=== PATIENT | female | born 1935 | race Caucasian/White ===

== ENCOUNTER 2016-12-10 13:41 | Emergency (ER) | payer OTHER, BC ==
[~2016-12-10] VITALS: Ht 157.5 cm; Wt 90.3 kg
[~2016-12-10 13:41] MED LIST: ADVAIR 250/501 DISK IH; ASPIR 8181 M1; ASPIR 8181 M1 PO; ASPIRIN E.C.81 M1 PO; CALCIUM 600 +1 EAC2 PO; CALTRATE600 MG; CARDIZEM CD120 MG PO; CEFTIN500 MG PO; CEFUROXIME500 MG PO; Calcium Carbonate,Ca PO; DOCUSATE SODIU100 MG PO; ENDOCET 5-3251 EACH PO; FERROUS SULFAT325 MG; FUROSEMIDE40 MG PO; Feosol PO; K-Dur PO; KEFLEX500 MG PO; KLOR-CON M2020 MEQ; LASIX40 MG PO; LEVOTHROID,S0.025 M1; LEVOTHYROXINE25 MCG PO; Levothroid,Synthroid PO; METOPROLOL SUCC25 MG; MULTIVITAMIN1 EAC1; NITROFURANTOIN25 MG PO; ONE-A-DAY ESSE1 EAC1 PO; PANTOPRAZOLE SO40 MG; PERCOCET 5/31 TABLET PO; PROTONIX40 MG PO; Proventil,Ventolin H IH; REMERON15 MG PO; Remeron PO; SPIRIVA RESPIMAT4 GM IH; Theragran-M,Centrum, PO; Toprol XL PO; ULTRAM50 MG PO; VENTOLIN HFA18 GM IH; VITAMIN D1000 INTUN PO; VITAMIN D31000 UNIT; VITAMIN D31000 UNIT PO; XARELTO20 MG PO; Zithromax PO; predniSONE PO
[2016-12-10 14:55] LABS: BASOPHIL COUNT 0.1 K/uL (0-0.1); EOSINOPHIL (%) 3.7 % (0-5); EOSINOPHIL COUNT 0.3 K/uL (0-0.3); HEMATOCRIT 35.6 % (36.0-46.0); IMMATURE GRANULOCYTE (%) 0.3 % (0.0-0.7); INSTRUMENT ABS NEUTROPHIL CT 5.4 K/uL; LYMPHOCYTE COUNT 1.4 K/uL (1.0-2.8); MCH 30.4 PG (29.0-34.0); MCHC 31.7 G/DL (30.0-36.0); MCV 95.7 FL (83-99); MONOCYTE (%) 8.4 % (3-12); MONOCYTE COUNT 0.7 K/uL (0-0.8); NEUTROPHIL (%) 68.7 % (45-76); NEUTROPHIL COUNT 5.4 K/uL (1.8-6.4); PLATELET COUNT 268 K/uL (156-360); RBC DIS.WIDTH-CV 13.4 % (11.8-14.6); RBC DIS.WIDTH-SD 47.5 % (39-53); RED BLOOD COUNT 3.72 M/uL (3.80-5.20); WHITE BLOOD COUNT 7.8 K/uL (4.1-10.2)
[2016-12-10 15:06] LABS: CHLORIDE 106 mEq/L (99-109); POTASSIUM 4.1 mEq/L (3.7-5.4); SODIUM 143 mEq/L (136-147)
[2016-12-10 15:08] LABS: GLUCOSE 111 mg/dL (70-99)
[2016-12-10 15:09] LABS: ANION GAP 11 MEQ/L (2-14)
[2016-12-10 15:12] LABS: GFR ESTIMATE (CALCULATED) 57 mL/min/; UREA NITROGEN (BUN) 24 mg/dL (9-23)
[2016-12-10] MEDS ORDERED: VENTOLIN HFA18 GM IH (16:20)
[2016-12-10] MEDS ORDERED: PREDNISONE20 MG PO (16:20)
[2016-12-10] MEDS ORDERED: ZITHROMAX Z-PA250 MG PO (16:25)
[2016-12-10 16:29] VITALS: BP 131/70
== END 2016-12-10 16:29 | disposition home or self-care (01) ==
LOC: EME 13:41
PROVIDERS: Physician Assistant
DX: J45.909 Unspecified asthma, uncomplicated (principal); R05 Cough; R06.00 Dyspnea, unspecified; E03.9 Hypothyroidism, unspecified; Z93.2 Ileostomy status
CPT/HCPCS: 71020; 80048; 85025; 94640; 99281; 99284; J7512